=== PATIENT | female | born 1995 | race American Indian/Alaskan Native ===

== ENCOUNTER 2016-12-20 15:55 | Outpatient (CLI) | payer MEDICAID ==
[2016-12-20] MEDS ORDERED: LACTATED RINGERS 500 ML IV ONE (16:01)
[2016-12-20 16:15] VITALS: BP 113/69
== END 2016-12-20 16:37 | disposition home or self-care (01) ==
LOC: TRG 15:55
PROVIDERS: ATTEND Obstetrics & Gynecology
DX: O47.02 False labor before 37 completed weeks of gestation, second trimester (principal); Z3A.23 23 weeks gestation of pregnancy
CPT/HCPCS: 59025